=== PATIENT | male | born 1975 | race Caucasian/White ===

== ENCOUNTER 2020-02-13 19:10 | Emergency (ER) | payer BC ==
[~2020-02-13 19:10] MED LIST: Iopamidol-370 76% 500 ML 1 ML ONE
[2020-02-13 19:37] LABS: #Lymphocytes 1.2 thou/uL (1.20-3.40); #Monocytes 0.4 thou/uL (0.11-0.59); %Basophils 0.1 % (0.0-1.0); %Eosinophils 0.1 % (0.0-10.0); %Lymphocytes 7.1 % (21.0-51.0); %Monocytes 2.4 % (0.0-10.0); %Neutrophils 90.3 % (42.0-75.0); Hemoglobin 15.9 g/dL (14.0-18.0); Mean Corpuscular HGB CONC 34.4 g/dL (32.0-36.0); Mean Corpuscular Hemoglobin 33.8 pg (27.0-31.0); Mean Corpuscular Volume 98.5 fL (78.0-98.0); Mean Platelet Volume 9.3 fL (7.4-10.4); Platelet Count 209 thou/uL (130-400); RBC Distribution Width 11.8 % (11.5-14.5); White Blood Cell (WBC) Count 16.6 thou/uL (4.8-10.8)
[2020-02-13 19:42] LABS: Bacteria/HPF None Seen HPF (None Seen); Bilirubin Negative (Negative); Blood, Urine 3+ (Negative); Clarity Clear (Clear); Glucose, Urine (Dipstick) Normal (Negative); Ketone, Urine 10 mg/dL (Negative); Leukocyte Negative Leu/uL (Negative); Mucous/LPF 1+ LPF (<2+); Nitrite Negative (Negative); Protein, Urine (Dipstick) 20 mg/dL (Neg-Trace); RBC/HPF Greater than 50 HPF (0-3); Squamous Epithelial None Seen HPF (0-3); Urobilinogen Normal mg/dL (Less than 2); WBC/HPF 0-3 HPF (0-3); pH, Urine 5.5 (5.0-9.0)
[2020-02-13 19:53] LABS: ALT (SGPT) 48 U/L (8-55); AST (SGOT) 33 U/L (5-34); Albumin 4.6 g/dL (3.5-5.0); Alkaline Phosphatase 96 U/L (40-110); Anion Gap 14 mmol/L (10-20); BUN (Urea Nitrogen) 17 mg/dL (8.9-20.6); Bilirubin, Total 0.4 mg/dL (0.2-1.2); Calc. Creatinine Clearance 0 mL/min (70-130); Calcium 9.3 mg/dL (7.8-10.44); Carbon Dioxide 21 mmol/L (22-29); Chloride 105 mmol/L (98-107); Estimated GFR-MDRD 49; Globulin 3.7 g/dL (2.4-3.5); Glucose 148 mg/dL (70-105); Lipase 39 U/L (8-78); Potassium 4.2 mmol/L (3.5-5.1); Protein, Total 8.3 g/dL (6.0-8.3); Sodium 136 mmol/L (136-145)
--- NOTE | 2020-02-13 21:57 | CT ---
EXAM: CT ABDOMEN AND PELVIS HISTORY: Right lower quadrant pain. Right flank pain. COMPARISON: None. Procedure: Multiple contiguous axial images were obtained and a CT of the abdomen and pelvis with IV contrast. C oronal reformats were performed. FINDINGS: Lower Chest: Calcified granuloma in the right lower lobe Vessels: Normal caliber aorta. Heart: Normal heart size Abdomen: Portal vein:Patent Gallbladder: Contracted due to nonfasting state Liver: within normal limits. Pancreas: within normal limits. Spleen: within normal limits. Adrenals: within normal limits. Kidneys: Symmetric enhancement of the kidneys. No evidence of left sided obstructive uropathy. Mild d ilatation of the right calyx and right renal pelvis. Mild dilatation of the proximal and mid right ureter. No definite ureteral calculi. Peritoneum: No ascites or free air, no fluid collection. Bowel: Limited evaluation due to the lack of oral contrast administration. No evidence of bowel obstr uction. Ileocecal junction is unremarkable. Normal caliber appendix. Scattered fecal material in a nondistended, nondilated colon. Mesentery and Retroperitoneum: No enlarged mesenteric or retroperitoneal lymph nodes. Abdominal Wall: Small umbilical hernia containing mesenteric fat Pelvis: Reproductive Organs: Reproductive organs are unremarkable. Pelvis: No mass, lymphadenopathy, free air or free fluid. Bladder: Questionable recently passed less than 1 mm calculus. No evidence of a ladder wall mucosal t hickening. Bones: No lytic or blastic lesions. Severe degenerative change at L4-L5. IMPRESSION: 1. Mild right-sided obstructive uropathy, possibly due to recently passed calculus that is now in the right aspect of the bladder. 2. Normal caliber appendix.
== END 2020-02-13 23:24 | disposition home or self-care (01) ==
LOC: ERS 19:10
DX: N20.0 Calculus of kidney (principal); F17.210 Nicotine dependence, cigarettes, uncomplicated
CPT/HCPCS: 36415; 74177; 80053; 81003; 81015; 83690; 85025; 96360; 96361; Q9967

== ENCOUNTER 2024-04-27 10:07 | Day surgery (SDC) | payer BC ==
[2024-04-22 09:32] VITALS: BMI 33.7
[2024-04-27] MEDS ORDERED: fentaNYL 50 mcg/mL 1 mL Vial ONE (13:25)
[2024-04-27] MEDS ORDERED: Ropivacaine 0.2% HCl/PF 20 ML ONE (13:26)
[2024-04-27] MEDS ORDERED: Ropivacaine 0.5% HCl/PF (150 MG/30 ML VIAL) ONE (13:26)
[2024-04-27] MEDS ORDERED: Midazolam HCl 2 mg/2 ml Vial ONE (13:26)
[2024-04-27] MEDS ORDERED: CEFAZOLIN 2 GM in Sodium Chloride 0.9% 100 ML IVPB SCH (13:45)
[2024-04-27] MEDS ORDERED: Vancomycin (BATCH) 2 GM in Premix 1 BAG IVPB SCH (13:45)
[2024-04-27] MEDS ORDERED: CEFAZOLIN 2 GM VIAL ONE (13:53)
[2024-04-27] MEDS ORDERED: Zolpidem Tartrate 5 MG TAB PO PRN (14:15)
[2024-04-27] MEDS ORDERED: Ropivacaine 0.2% 550 ML 550 ML NERVE BLCK SCH (14:15)
[2024-04-27] MEDS ORDERED: traMADol HCl 50 MG TAB PO PRN ×2 (14:15)
[2024-04-27] MEDS ORDERED: Promethazine HCl 25 MG/ML VIAL IM PRN (14:15)
[2024-04-27] MEDS ORDERED: Ondansetron PF 4 MG/2 ML Vial IVP PRN (14:15)
[2024-04-27] MEDS ORDERED: HYDROcodone/Acetaminophen 10/325 mg Tablet PO PRN ×2 (14:15)
[2024-04-27] MEDS ORDERED: fentaNYL PF 100 MCG/2 ML SYRINGE ONE (14:22)
[2024-04-27] MEDS ORDERED: PROPOFOL 20 ML ONE ×2 (14:22)
[2024-04-27] MEDS ORDERED: Rocuronium Bromide 10 MG/ML (10ML VIAL) ONE (14:22)
[2024-04-27] MEDS ORDERED: ePHEDrine Sulfate 50 MG/10 ML VIAL ONE (14:49)
[2024-04-27] MEDS ORDERED: Lidocaine 2% PF 5 ML VIAL ONE (14:49)
[2024-04-27] MEDS ORDERED: Ondansetron PF 4 MG/2 ML Vial ONE (15:35)
[2024-04-27] MEDS ORDERED: SUGAMMADEX SODIUM 200 MG/2 ML VIAL ONE (15:44)
== END 2024-04-27 18:02 | disposition home or self-care (01) ==
LOC: SDC 10:07
PROVIDERS: ATTEND Orthopaedic Surgery
DX: M75.102 Unspecified rotator cuff tear or rupture of left shoulder, not specified as traumatic (principal); M75.22 Bicipital tendinitis, left shoulder; J45.909 Unspecified asthma, uncomplicated; I10 Essential (primary) hypertension; M19.012 Primary osteoarthritis, left shoulder; F17.200 Nicotine dependence, unspecified, uncomplicated; Z79.899 Other long term (current) drug therapy; Z98.890 Other specified postprocedural states
CPT/HCPCS: A4306; A6223; C1713; J2250; J2405; J2704; J2795; J3010; J3370